=== PATIENT | male | born 1970 | race American Indian/Alaskan Native ===

== ENCOUNTER 2019-02-15 20:13 | Emergency (ER) | payer BC ==
[2019-02-15 20:19] VITALS: BP 138/79
--- NOTE | 2019-02-15 20:59 | Emergency Department Report ---
Blank Doc - Documentation Documentation: 49 y o male presents with abscess and pain to rectum states he shaved around that area ACC eval
[2019-02-16] MEDS ORDERED: MORPHINE IV ONE (00:43)
[2019-02-16] MEDS ORDERED: ZOFRAN IV ONE (00:43)
[2019-02-16] MEDS ORDERED: NACL 0.9% 1000 ML 1,000 ML IV ONE ×2 (00:43→00:45)
[2019-02-16] MEDS ORDERED: CLEOCIN 900 MG/50 mL 900 MG/50 ML BAG IV ONE (00:43)
[2019-02-16 01:25] LABS: Basophils # (Auto) 0.1 K/mm3 (0.0-0.1); Basophils % (Auto) 0.5 % (0.0-1.8); Eosinophils % (Auto) 0.2 % (0.0-4.3); Hematocrit 35.6 % (35.5-45.6); Hemoglobin 11.6 gm/dl (11.8-15.2); Lymphocytes # (Auto) 1.6 K/mm3 (1.2-5.4); Lymphocytes % (Auto) 12.3 % (13.4-35.0); Mean Corpuscular HGB Conc 33 % (32-34); Mean Corpuscular Volume 84 fl (84-94); Monocytes # (Auto) 1.3 K/mm3 (0.0-0.8); Monocytes % (Auto) 10.3 % (0.0-7.3); Platelet Count 321 K/mm3 (140-440); Red Blood Count 4.26 M/mm3 (3.65-5.03); Red Cell Distribution Width 13.5 % (13.2-15.2)
[2019-02-16] MEDS ORDERED: BOOSTRIX IM ONE (01:44)
--- NOTE | 2019-02-16 01:45 | Emergency Department Report ---
- General Chief complaint: Skin/Abscess/Foreign Body Stated complaint: CYST Time Seen by Provider: 02/15/19 20:57 Source: patient Mode of arrival: Ambulatory Limitations: No Limitations - History of Present Illness Initial comments: Patient is a 49-year-old male who presents for right buttocks abscess 3 days states malaise generalized with purulent drainage unable to sit patient denies fevers no nausea vomiting no history of diabetes no history of other abscesses MD complaint: abscess/boil Onset/Timin -: days(s) Tetanus Up to Date: no Location: buttocks Severity: moderate Severity scale (0 -10): 5 Quality: sharp, other (itching ) Consistency: constant Improves with: none Worsens with: palpation, movement Context: none Associated symptoms: itching, malaise Treatments Prior to Arrival: none - Related Data Previous Rx's Medication Instructions Recorded Last Taken Type Clindamycin [Clindamycin CAP] 300 mg PO Q6H 10 Days #40 cap 02/16/19 Unknown Rx traMADol [Ultram] 50 mg PO Q6HR PRN #12 tablet 02/16/19 Unknown Rx Allergies Allergy/AdvReac Type Severity Reaction Status Date / Time No Known Allergies Allergy Verified 02/15/19 20:14 Abscess Boil [facility] Chief Complaint: Skin/Abscess/Foreign Body Stated Complaint: CYST Time Seen by Provider: 02/15/19 20:57 Duration: 3 Days Location: Perianal Severity: Moderate History: Yes Pain, Yes Purulent Drainage, No Fever, No Numbness, No Foreign Body, No Previous History, No Insect Bite Home Medications: Previous Rx's Medication Instructions Recorded Last Taken Type Clindamycin [Clindamycin CAP] 300 mg PO Q6H 10 Days #40 cap 02/16/19 Unknown Rx traMADol [Ultram] 50 mg PO Q6HR PRN #12 tablet 02/16/19 Unknown Rx Allergies/Adverse Reactions: Allergies Allergy/AdvReac Type Severity Reaction Status Date / Time No Known Allergies Allergy Verified 02/15/19 20:14 ED Review of Systems ROS: Stated complaint: CYST Other details as noted in HPI ED Past Medical Hx - Past Medical History Previous Medical History?: No - Surgical History Past Surgical History?: Yes Additional Surgical History: teeth - Social History Smoking Status: Never Smoker Substance Use Type: None - Medications Home Medications: Home Medications Medication Instructions Recorded Confirmed Last Taken Type Clindamycin [Clindamycin CAP] 300 mg PO Q6H 10 Days #40 cap 02/16/19 Unknown Rx traMADol [Ultram] 50 mg PO Q6HR PRN #12 tablet 02/16/19 Unknown Rx ED Physical Exam - General Limitations: No Limitations General appearance: alert, in no apparent distress - Head Head exam: Present: atraumatic, normocephalic - Eye Eye exam: Present: normal appearance, PERRL, EOMI Pupils: Present: normal accommodation - ENT ENT exam: Present: normal exam, mucous membranes moist - Neck Neck exam: Present: normal inspection, full ROM - Respiratory Respiratory exam: Present: normal lung sounds bilaterally. Absent: respiratory distress, wheezes, stridor, chest wall tenderness - Cardiovascular Cardiovascular Exam: Present: regular rate, normal rhythm, normal heart sounds. Absent: systolic murmur, diastolic murmur, rubs, gallop - GI/Abdominal GI/Abdominal exam: Present: soft, normal bowel sounds. Absent: distended, tenderness, guarding, rebound, rigid, bruit, hernia - Rectal Rectal exam: Present: normal rectal tone, normal prostate, other (right glut abscess ). Absent: black stool, bloody stool, hemorrhoids, mass, tenderness - exam: Present: normal inspection External exam: Present: normal external exam - Extremities Exam Extremities exam: Present: normal inspection, full ROM, normal capillary refill. Absent: tenderness, pedal edema, joint swelling - Back Exam Back exam: Present: normal inspection, full ROM, muscle spasm. Absent: tenderness, CVA tenderness (R), CVA tenderness (L), rash noted - Neurological Exam Neurological exam: Present: alert, oriented X3, CN II-XII intact, normal gait, reflexes normal - Psychiatric Psychiatric exam: Present: normal affect, normal mood - Skin Skin exam: Present: warm, dry, intact, normal color. Absent: rash ED Course Vital Signs 02/15/19 20:16 Temperature 98.9 F Pulse Rate 120 H Respiratory 18 Rate Blood Pressure 138/79 O2 Sat by Pulse 96 Oximetry - I & D Right Buttocks Type of Procedure: Complex (large abscess 4x3.5 cm right buttocks) Site: right buttocks Blade Size: 11 (1 incision 2.5 cm) I & D Procedure: betadine prep, sterile dressing applied, gauze wick placed Progress: Right buttocks abscess by 3.5 cm right buttocks fluctuant purulent drainage site Betadine solution anesthesia with 1% lidocaine plain is 5 mL incision with 11 blade scalpel 2.5 cm moderate purulent output loculations broken with a 6 inch mild tracking 6 cm bilaterally irrigated with 250 mL of sterile saline packing with iodoform all bleeding is controlled sterile dressing applied patient given wound care instructions patient tolerated procedure with minimal distress following a general surgery in 1-2 days. ED Medical Decision Making - Lab Data Result diagrams: 02/16/19 01:11 02/16/19 01:11 Labs 02/16/19 02/16/19 01:11 01:11 WBC 12.7 H RBC 4.26 Hgb 11.6 L Hct 35.6 MCV 84 MCH 27 L MCHC 33 RDW 13.5 Plt Count 321 Lymph % (Auto) 12.3 L Hickman % (Auto) 10.3 H Eos % (Auto) 0.2 Baso % (Auto) 0.5 Lymph # 1.6 Hickman # 1.3 H Eos # 0.0 Baso # 0.1 Seg Neutrophils % 76.7 H Seg Neutrophils # 9.7 H Sodium 137 Potassium 3.9 Chloride 98.1 Carbon Dioxide 25 Anion Gap 18 BUN 8 L Creatinine 1.1 Estimated GFR > 60 BUN/Creatinine Ratio 7 Glucose 205 H Calcium 9.2 Total Bilirubin 0.80 AST 10 ALT 9 Alkaline Phosphatase 60 Total Protein 7.7 Albumin 3.4 L Albumin/Globulin Ratio 0.8 - Radiology Data Radiology results: report reviewed, image reviewed Ordering Physician: RONEL DALLAS NP Date of Service: 02/16/19 Procedure(s): CT abdomen pelvis wo con Accession Number(s): [id number] cc: RONEL DALLAS NP PROCEDURE: CT ABDOMEN PELVIS WO CON TECHNIQUE: Computerized axial tomography of the abdomen and pelvis was performed without intravenous contrast. This study is performed without intravascular contrast material and its sensitivity for abdominal and pelvic pathology, including neoplasms, inflammation, abscess, free fluid, thrombosis, arterial dissection and infarction, is reduced compared with a contrast enhanced study. HISTORY: abscess rectal COMPARISONS: None . FINDINGS: Visualized lower thorax: No significant abnormality. Liver: Normal size and attenuation. Spleen: Normal size and attenuation. Gallbladder and biliary system: Normal. Pancreas: Normal. Adrenals: Normal. Kidneys: Normal. GI tract: No obstruction. No ileus or enteritis. Cecum, appendix and colon are normal . Lymph nodes and mesentery: Normal. Vasculature: Normal.. Bladder: Normal. Reproductive organs: Normal. Peritoneum: No free fluid. Musculoskeletal structures: No significant abnormality. Other: There is an atypical fluid collection identified in the facial soft tissues in the right posterior buttock region, this measures 3.7 x 2 x 5 cm. An abscess in this region is noted. Mild induration of the superficial soft tissues surrounding this region is noted.. IMPRESSION: There is an atypical fluid collection identified in the superficial soft tissues of the right posterior buttock region in the midline. This measures 5 x 3.7 x 2 cm. An abscess in this region is noted. Mild induration of the superficial soft tissues surrounding this abscess. There is no evidence of intestinal or urinary tract obstruction. No ileus or enteritis. The appendix is normal. . This document is electronically signed by Thais Saavedra DO., Feb 16 2019 02:04:06 AM ET Transcribed By: [facility] Dictated By: THAIS SAAVEDRA MD Electronically Authenticated By: THAIS SAAVEDRA MD Signed Date/Time: 02/16/196 DD/ TD/TT: [birth year]1942 - Medical Decision Making ct abd pelvis confirms large abscess no colorectal involvment, there is no fever , mild tachycardia improved with ivfs, Abscess I&D see procedure note on patient controlled patient tolerated the procedure with minimal distress patient instructions were followed by general surgery in 1-2 service and improved after incision and drainage. pt dc't to home in stable condition at this time. Critical care attestation.: If time is entered above; I have spent that time in minutes in the direct care of this critically ill patient, excluding procedure time. ED Disposition Clinical Impression: Abscess Disposition: DC-01 TO HOME OR SELFCARE Is pt being admited?: No Does the pt Need Aspirin: No Condition: Stable Instructions: Abscess (ED) Prescriptions: Clindamycin [Clindamycin CAP] 300 mg PO Q6H 10 Days #40 cap traMADol [Ultram] 50 mg PO Q6HR PRN #12 tablet PRN Reason: Pain Referrals: JACKIE SONG DO [Staff Physician] - 3-5 Days Forms: Work/School Release Form(ED) Time of Disposition: 02:48
[2019-02-16 01:48] LABS: Alanine Aminotransferase 9 units/L (7-56); Albumin 3.4 g/dL (3.9-5); BUN/Creatinine Ratio 7; Blood Urea Nitrogen 8 mg/dL (9-20); Calcium 9.2 mg/dL (8.4-10.2); Hemolysis Index 6
--- NOTE | 2019-02-16 02:06 | Cat Scan Report ---
PROCEDURE: CT ABDOMEN PELVIS WO CON TECHNIQUE: Computerized axial tomography of the abdomen and pelvis was performed without intravenous contrast. This study is performed without intravascular contrast material and its sensitivity for ab dominal and pelvic pathology, including neoplasms, inflammation, abscess, free fluid, thrombosis, art erial dissection and infarction, is reduced compared with a contrast enhanced study. HISTORY: abscess rectal COMPARISONS: None . FINDINGS: Visualized lower thorax: No significant abnormality. Liver: Normal size and attenuation. Spleen: Normal size and attenuation. Gallbladder and biliary system: Normal. Pancreas: Normal. Adrenals: Normal. Kidneys: Normal. GI tract: No obstruction. No ileus or enteritis. Cecum, appendix and colon are normal . Lymph nodes and mesentery: Normal. Vasculature: Normal.. Bladder: Normal. Reproductive organs: Normal. Peritoneum: No free fluid. Musculoskeletal structures: No significant abnormality. Other: There is an atypical fluid collection identified in the facial soft tissues in the right post erior buttock region, this measures 3.7 x 2 x 5 cm. An abscess in this region is noted. Mild indurati on of the superficial soft tissues surrounding this region is noted.. IMPRESSION: There is an atypical fluid collection identified in the superficial soft tissues of the right posterior buttock region in the midline. This measures 5 x 3.7 x 2 cm. An abscess in this regio n is noted. Mild induration of the superficial soft tissues surrounding this abscess. There is no evidence of intestinal or urinary tract obstruction. No ileus or enteritis. The appendix is normal. . This document is electronically signed by Thais Saavedra DO., Feb 16 2019 02:04:06 AM ET
== END 2019-02-16 03:20 | disposition home or self-care (01) ==
LOC: ED 20:13
DX: L02.31 Cutaneous abscess of buttock (principal)
CPT/HCPCS: 10060; 36415; 74176; 80053; 85025; 87040; 90471; 90715; 96365; 96375; 99284; J2270; J2405; J7030